=== PATIENT | male | born 1985 | race Caucasian/White ===

== ENCOUNTER 2024-05-29 12:23 | Inpatient (IN) | payer OTHER ==
[2024-05-29] MEDS ORDERED: VANCOMYCIN IV PER PHARMACY 1 EACH MISC MISCELLANE PRN (13:00)
--- NOTE | 2024-05-29 13:09 | ED ---
General Adult HPI - General Chief complaint: Chest Pain Stated complaint: chest pain Time Seen by Provider: 05/29/24 12:30 Source: patient, EMS, RN notes reviewed, old records reviewed Mode of arrival: EMS Limitations: no limitations - History of Present Illness Initial comments: 49-year-old male presenting from [place] for evaluation of right armpit cellulitis. Patient has had pain and swelling in the right armpit for the past several days. He is currently at [place] for alcohol abuse. He is been there for 2 days. He had also complained of some nonspecific chest tightness which has been also going on for 2 days since he has abstained from alcohol. No prior cardiac history. - Related Data Home Medications Medication Instructions Recorded Confirmed Methadone HCl [Methadone Intensol] 50 mg PO DAILY 05/29/24 05/29/24 Previous Rx's Medication Instructions Recorded Cephalexin [Keflex] 500 mg PO Q6HR 10 Days #40 cap 05/29/24 Sulfamethox-Tmp 800-160Mg [Bactrim 1 tab PO Q12HR #20 tab 05/29/24 DS 800-160 mg] Allergies Allergy/AdvReac Type Severity Reaction Status Date / Time Penicillins Allergy Unknown Verified 05/29/24 13:42 Childhood Review of Systems ROS Statement: Those systems with pertinent positive or pertinent negative responses have been documented in the HPI. ROS Other: All systems not noted in ROS Statement are negative. Past Medical History Past Medical History: Asthma, Hypertension Additional Past Medical History / Comment(s): alcohol withdrawl seizures Past Surgical History: Orthopedic Surgery, Tonsillectomy Additional Past Surgical History / Comment(s): R arm radius and ulna surgery r/t fx. wisdowm teeth removal Past Psychological History: Anxiety, Depression Smoking Status: Former smoker Past Alcohol Use History: Abuse, Daily Past Drug Use History: Opiates, Prescription Drug Abuse General Exam General appearance: alert, in no apparent distress Head exam: Present: atraumatic, normocephalic Eye exam: Present: normal appearance, PERRL ENT exam: Present: normal exam Neck exam: Present: normal inspection. Absent: tenderness, meningismus Respiratory exam: Present: normal lung sounds bilaterally. Absent: respiratory distress, wheezes Cardiovascular Exam: Present: regular rate, normal rhythm GI/Abdominal exam: Present: soft. Absent: distended, tenderness, guarding Extremities exam: Present: normal inspection, normal capillary refill Neurological exam: Present: alert, oriented X3, CN II-XII intact. Absent: motor sensory deficit Psychiatric exam: Present: normal affect, normal mood Skin exam: Present: other (Cellulitis in the right armpit stemming from a likely folliculitis minimal central fluctuance, no induration) Course Vital Signs 05/29/24 05/29/24 12:25 14:31 Temperature 99.1 F Pulse Rate 86 75 Respiratory 20 20 Rate Blood Pressure 135/87 118/75 O2 Sat by Pulse 95 98 Oximetry Procedures - Incision & Drainage Consent Obtained: verbal consent Indication: Colitis Site: upper extremity Size (cm): 1 Anesthetic Used: lidocaine 1% I&D Cleaning Method: Chloroprep, Alcohol Wipe Sterile Field Used?: No Ultrasound used: No Needle Aspiration Performed?: Yes Irrigation Performed?: Yes I&D Drainage Obtained: Pus Insertion of drain: No Culture Obtained?: No Patient Tolerated Procedure: well Medical Decision Making - Medical Decision Making Was pt. sent in by a medical professional or institution (Dr. PA, CONSTRUCTION SUPERINTENDENT, urgent care, hospital, or assisted...) When possible be specific @ -No Did you speak to anyone other than the patient for history (EMS, parent, family, police, friend...)? What history was obtained from this source @ -No Did you review nursing and triage notes (agree or disagree)? Why? @ -I reviewed and agree with nursing and triage notes Were old charts reviewed (outside hosp., previous admission, EMS record, old EKG, old radiological studies, urgent care reports/EKG's, assisted records)? Report findings @ -No old charts were reviewed Differential Diagnosis (chest pain, altered mental status, abdominal pain women, abdominal pain men, vaginal bleeding, weakness, fever, dyspnea, syncope, headache, dizziness, GI bleed, back pain, seizure, CVA, palpatations, mental health, musculoskeletal)? @ -Not applicable EKG interpreted by me (3pts min.). @Sinus rhythm rate of 83 AK interval 142, QRS duration 98, QTc 392 [id number] X-rays interpreted by me (1pt min.). @Chest x-ray negative for acute cardiopulmonary finding CT interpreted by me (1pt min.). @ -None done U/S interpreted by me (1pt. min.). @ -None done What testing was considered but not performed or refused? (CT, X-rays, U/S, labs)? Why? @ -None What meds were considered but not given or refused? Why? @ -None Did you discuss the management of the patient with other professionals (professionals i.e. , PA, CONSTRUCTION SUPERINTENDENT, lab, RT, psych nurse, delinquency prevention social worker, bull fiddle player, t eacher, drug abuse resistance education officer, hospice case manager)? Give summary @Sound physician group Was smoking cessation discussed for >3mins.? @ -No Was critical care preformed (if so, how long)? @ -No Were there social determinants of health that impacted care today? How? (Homelessness, low income, unemployed, alcoholism, drug addiction, transportation, low edu. Level, literacy, decrease access to med. care, retirement, re hab)? @ -No Was there de-escalation of care discussed even if they declined (Discuss DNR or withdrawal of care, Hospice)? DNR status @ -No What co-morbidities impacted this encounter? (DM, HTN, Smoking, COPD, CAD, Cancer, CVA, ARF, Chemo, Hep., AIDS, mental health diagnosis, sleep apnea, morbid obesity)? @ -ETOH abuse Was patient admitted / discharged? Hospital course, mention meds given and ro camilla, prescriptions, significant lab abnormalities, going to OR and other pertinent info. @ -39 yo male presenting for evaluation of pain and swelling in the right armpit and a vague chest discomfort while abstaining from alcohol. EKG is sinus rhythm rate of [address] segment elevation. Chest x-ray is clear. He has a normal CBC, normal CMP, negative D-dimer, negative troponin. I was able to aspirate the folliculitis in the right armpit and start the patient on antibiotics. Patient will be admitted for continuous IV antibiotics and alcohol withdrawal. Undiagnosed new problem with uncertain prognosis? @ -No Drug Therapy requiring intensive monitoring for toxicity (Heparin, Nitro, Ins ulin, Cardizem)? @ -No Were any procedures done? @ -Aspiration of large folliculitis Diagnosis/symptom? @ -Cellulitis folliculitis, alcohol withdrawal Acute, or Chronic, or Acute on Chronic? @Acute Uncomplicated (without systemic symptoms) or Complicated (systemic symptoms)? @ -Default Side effects of treatment? @ -No Exacerbation, Progression, or Severe Exacerbation? @ -No Poses a threat to life or bodily function? How? (Chest pain, [place], [place], pneumonia, PE, COPD, DKA, ARF, appy, cholecystitis, CVA, Diverticulitis, Homicidal, Suicidal, threat to staff... and all critical care pts) @Low risk at this time - Lab Data Result diagrams: 05/29/24 12:54 05/29/24 12:54 Lab Results 05/29/24 05/29/24 05/29/24 Range/Units 12:54 12:54 12:54 WBC 8.18 (4.50-10.00) 10*3/uL RBC 4.37 L (4.40-5.60) 10*6/uL Hgb 13.4 (13.0-17.0) g/dL Hct 39.1 L (39.6-50.0) % MCV 89.5 (80.0-97.0) fL MCH 30.7 (27.0-32.0) pg MCHC 34.3 (32.0-37.0) g/dL Plt Count 240 (140-440) 10*3/uL MPV 11.3 (9.5-12.2) fL Immature Gran % (Auto) 0.2 % Neutrophils % 78.7 % Lymphocytes % 10.5 % Monocytes % 9.9 % Eosinophils % 0.2 % Basophils % 0.5 % Immature Gran # 0.02 (0.00-0.04) 10*3/uL Neutrophils # 6.43 (1.80-7.70) 10*3/uL Lymphocytes # 0.86 L (0.90-5.00) 10*3/uL Monocytes # 0.81 (0.20-1.00) 10*3/uL Eosinophils # 0.02 L (0.04-0.35) 10*3/uL Basophils # 0.04 (0.00-0.10) 10*3/uL PT 12.0 (10.0-12.5) sec INR 1.1 (<1.2) APTT 26.4 (22.0-30.0) sec D-Dimer (<0.60) mg/L FEU Sodium 136 L (137-145) mmol/L Potassium 4.8 (3.5-5.1) mmol/L Chloride 106 (98-107) mmol/L Carbon Dioxide 21 L (22-30) mmol/L Anion Gap 9 mmol/L BUN 9 (9-20) mg/dL Creatinine 0.66 (0.66-1.25) mg/dL Est GFR (CKD-EPI)AfAm >90 (>60 ml/min/1.73 sqM) Est GFR (CKD-EPI)NonAf >90 (>60 ml/min/1.73 sqM) Glucose 101 H (74-99) mg/dL Plasma Lactic Acid Artemio (0.7-2.0) mmol/L Calcium 9.4 (8.4-10.2) mg/dL Magnesium 1.7 (1.6-2.3) mg/dL Total Bilirubin 0.7 (0.2-1.3) mg/dL AST 25 (17-59) U/L ALT 17 (4-49) U/L Alkaline Phosphatase 58 (38-126) U/L Troponin I (0.000-0.034) ng/mL Total Protein 6.6 (6.3-8.2) g/dL Albumin 4.1 (3.5-5.0) g/dL 05/29/24 05/29/24 05/29/24 Range/Units 12:54 12:54 14:03 WBC (4.50-10.00) 10*3/uL RBC (4.40-5.60) 10*6/uL Hgb (13.0-17.0) g/dL Hct (39.6-50.0) % MCV (80.0-97.0) fL MCH (27.0-32.0) pg MCHC (32.0-37.0) g/dL Plt Count (140-440) 10*3/uL MPV (9.5-12.2) fL Immature Gran % (Auto) % Neutrophils % % Lymphocytes % % Monocytes % % Eosinophils % % Basophils % % Immature Gran # (0.00-0.04) 10*3/uL Neutrophils # (1.80-7.70) 10*3/uL Lymphocytes # (0.90-5.00) 10*3/uL Monocytes # (0.20-1.00) 10*3/uL Eosinophils # (0.04-0.35) 10*3/uL Basophils # (0.00-0.10) 10*3/uL PT (10.0-12.5) sec INR (<1.2) APTT (22.0-30.0) sec D-Dimer 0.52 (<0.60) mg/L FEU Sodium (137-145) mmol/L Potassium (3.5-5.1) mmol/L Chloride (98-107) mmol/L Carbon Dioxide (22-30) mmol/L Anion Gap mmol/L BUN (9-20) mg/dL Creatinine (0.66-1.25) mg/dL Est GFR (CKD-EPI)AfAm (>60 ml/min/1.73 sqM) Est GFR (CKD-EPI)NonAf (>60 ml/min/1.73 sqM) Glucose (74-99) mg/dL Plasma Lactic Acid Artemio 1.1 (0.7-2.0) mmol/L Calcium (8.4-10.2) mg/dL Magnesium (1.6-2.3) mg/dL Total Bilirubin (0.2-1.3) mg/dL AST (17-59) U/L ALT (4-49) U/L Alkaline Phosphatase (38-126) U/L Troponin I <0.012 (0.000-0.034) ng/mL Total Protein (6.3-8.2) g/dL Albumin (3.5-5.0) g/dL Disposition Clinical Impression: Cellulitis, Alcohol withdrawal Disposition: ADMITTED IP TO THIS HOSP Condition: Stable Prescriptions: Sulfamethox-Tmp 800-160Mg [Bactrim DS 800-160 mg] 1 tab PO Q12HR #20 tab Cephalexin [Keflex] 500 mg PO Q6HR 10 Days #40 cap Is patient prescribed a controlled substance at d/c from ED?: No Referrals: None,Stated [Primary Care Provider] - 1-2 days Forms: [facility], [facility] Time of Disposition: 14:40
--- NOTE | 2024-05-29 13:11 | XR ---
EXAMINATION TYPE: XR chest 2V DATE OF EXAM: 05/29/2024 1:02 PM COMPARISON: None CLINICAL INDICATION: Male, 39 years old with history of Chest Pain; TECHNIQUE: XR chest 2V Frontal and lateral views of the chest. FINDINGS: Lungs/Pleura: There is no evidence of pleural effusion, focal consolidation, or pneumothorax. Pulmonary vascularity: Unremarkable. Heart/mediastinum: Cardiomediastinal silhouette is unremarkable. Musculoskeletal: No acute osseous pathology. IMPRESSION: No acute cardiopulmonary disease/process. [facility], , 05/29/2024 1:08 PM
[2024-05-29 13:13] LABS: INR 1.1 (<1.2); Partial Thromboplastin Time 26.4 sec (22.0-30.0)
[2024-05-29 13:14] LABS: Basophils # (A) 0.04 10*3/uL (0.00-0.10); Basophils % (A) 0.5 %; Eosinophils # (A) 0.02 10*3/uL (0.04-0.35); Eosinophils % (A) 0.2 %; HCT 39.1 % (39.6-50.0); HGB 13.4 g/dL (13.0-17.0); Lymphocytes # (A) 0.86 10*3/uL (0.90-5.00); Lymphocytes % (A) 10.5 %; MCH 30.7 pg (27.0-32.0); MCHC 34.3 g/dL (32.0-37.0); MCV 89.5 fL (80.0-97.0); Mean Platelet Volume 11.3 fL (9.5-12.2); Monocytes # (A) 0.81 10*3/uL (0.20-1.00); Monocytes % (A) 9.9 %; Neutrophils # (A) 6.43 10*3/uL (1.80-7.70); Neutrophils % (A) 78.7 %; Platelet Count 240 10*3/uL (140-440); RBC 4.37 10*6/uL (4.40-5.60); RDW 12.1 % (11.5-14.5); WBC 8.18 10*3/uL (4.50-10.00)
[2024-05-29] MEDS: LIDOCAINE 1% INJ 10MG/ML (20 ML MDV) SQ ONE (13:17)
[2024-05-29 13:20] LABS: ALT 17 U/L (4-49); AST 25 U/L (17-59); African American GFR (CKD) >90 (>60 ml/min/1.73 sqM); Albumin 4.1 g/dL (3.5-5.0); Alkaline Phosphatase 58 U/L (38-126); Anion Gap 9 mmol/L; Blood Urea Nitrogen 9 mg/dL (9-20); Calcium 9.4 mg/dL (8.4-10.2); Carbon Dioxide 21 mmol/L (22-30); Chloride 106 mmol/L (98-107); Glucose 101 mg/dL (74-99); Magnesium 1.7 mg/dL (1.6-2.3); Non-African American GFR(CKD) >90 (>60 ml/min/1.73 sqM); Potassium 4.8 mmol/L (3.5-5.1); Sodium 136 mmol/L (137-145); Total Bilirubin 0.7 mg/dL (0.2-1.3); Total Protein 6.6 g/dL (6.3-8.2)
[2024-05-29] MEDS: ONDANSETRON 4 MG/2 ML VIAL IVP STA (14:04)
[2024-05-29] MEDS: SODIUM CHLORIDE 0.9% 1,000 ML IV ONE (14:04)
[2024-05-29] MEDS: KETOROLAC 15 MG/ML 1 ML VIAL IVP STA (14:04)
[2024-05-29] MEDS: VANCOMYCIN 1,750 MG in SODIUM CHLORIDE 0.9% 500 ML 500 ML IVPB STA (14:05)
[2024-05-29] MEDS: LORazepam 2 MG/ML INJ IV STA (15:47)
[2024-05-29] MEDS ORDERED: LORazepam 2 MG/ML INJ IV PRN ×2 (16:39)
[2024-05-29] MEDS ORDERED: NALOXONE 0.4 MG/ML 1 ML VIAL IV PRN (16:40)
[2024-05-29] MEDS: THIAMINE 100 MG/ML 2 ML VIAL IM STA (17:01)
[2024-05-29] MEDS: SODIUM CHLORIDE 0.9% 1,000 ML IV SCH (17:02)
[2024-05-29] MEDS: LORazepam 2 MG/ML INJ IV PRN (17:10)
--- NOTE | 2024-05-29 18:08 | P.HPIM ---
History of Present Illness H&P Date: 05/29/24 Chief Complaint: cellulitis Patient is a 39-year-old male with history of asthma, hypertension, chronic alcohol abuse presenting for evaluation of right axillary cellulitis and chest pain. Patient is a transfer from [place] for alcohol abuse. Patient says he was working out doing push-ups and having having a lot of friction at the site. He noticed his right axilla started to become red started to swell up and grow painful over the past week. Since abstaining from alcohol patient endorses chest tightness that 2 days ago and describes it as a constant nonradiating tightness with no alleviating or exacerbating factors. Patient states he normally gets chest tightness due to his anxiety from quitting alcohol consumption. Patient denies any cardiac history. Patient admits to chills. Denies any fever, shortness of breath, nausea, vomiting, diarrhea, constipa tion, urinary symptoms. EKG independently interpreted displaying sinus rhythm, poor R wave progression, rate 83 bpm, QTc 392 CXR independently interpreted displaying no acute cardiopulmonary process WBC 8.18, Hgb 13.4, platelet 240, INR 1.1, sodium 136, CO2 21, BUN 9, creatinine 0.66, magnesium 1.7, lactic acid 1.1 T99.1 F, [place] 86, RR 20, BP 135/87, O2 saturation 95% on room air ED documentation reviewed. Review of systems: Pertinent positives and negatives as discussed in HPI, a complete review of systems was performed and all other systems are negative. Social history: Tobacco: Former 3 pack year smoker Alcohol: History of daily alcohol abuse, drinks 2 fifths of vodka a day, last drink 2 days ago Recreational drugs: History of opiate use Physical examination: Vital signs reviewed General: non toxic, no distress, appears at stated age, normal weight Derm: Erythematous, warm, tender to palpation, well-demarcated and indurated right axilla cellulitis with no drainage Head: atraumatic, normocephalic, symmetric Eyes: EOMI, anicteric sclera, pupils equal round reactive to light ENT: Nose and ears atraumatic Neck: No cervical lymphadenopathy, trachea midline, supple Mouth: no lip lesion, mucus membranes moist Cardiovascular: S1S2 reg, no murmur, positive dorsalis pedis pulse bilateral, no edema Lungs: CTA bilateral, no rhonchi, no rales, no accessory muscle use Abdominal: soft, non-tender to palpation, no guarding Ext: muscle strength 5 out of 5 in all 4 extremities grossly, no gross muscle atrophy Neuro: CN II-XI grossly intact, no gross focal neuro deficits Psych: Alert, oriented to person, place, and time Assessment/Plan: Patient is a 39-year-old male with history of asthma, hypertension, chronic alcohol abuse being admitted for right axillary cellulitis. #. Right axillary cellulitis SIRS 0, WBC with normal limit, patient afebrile, lactic acid within normal limit at 1.1 Continue with IV vancomycin IVPB every 8 hours, monitor renal function Blood cultures ordered #. Alcohol withdrawal Ativan per [facility] protocol Monitor for seizure Zofran 4 mg IVP every 8 hours as needed Thiamine 100 mg p.o. daily Normal saline at 75 cc an hour #. Acute chest pain, likely noncardiac Likely secondary to alcohol withdrawal/anxiety, patient says he normally gets chest tightness when he stops drinking alcohol EKG independently interpreted displaying sinus rhythm, rate 83 bpm, QTc 392 CXR independent interpreted displaying no acute cardiopulmonary process Troponin <0.012 #. History of asthma Albuterol inhaler 2.5 mg inhalation 4 times daily as needed Discharge him with albuterol inhaler per patient request #. History of opioid use Methadone 50 mg p.o. daily #. Hypertension Patient states he was prescribed clonidine for his hypertension Plan to switch patient to better antihypertensive upon discharge DVT prophylaxis: Lovenox 40 SQ daily The patient is admitted with an anticipated less than than 2 midnight stay for evaluation of right axillary cellulitis. CODE STATUS: Full code Discussed with: Patient Anticipated discharge place: [place] Anne Singh MD PGY-1 IM Dictation was produced using [employer] dictation software. please excuse any gr ammatical, word or spelling errors. Past Medical History Past Medical History: Asthma, Hypertension Additional Past Medical History / Comment(s): alcohol withdrawl seizures Past Surgical History: Orthopedic Surgery, Tonsillectomy Additional Past Surgical History / Comment(s): R arm radius and ulna surgery r/t fx. wisdowm teeth removal Past Psychological History: Anxiety, Depression Smoking Status: Former smoker Past Alcohol Use History: Abuse, Daily Past Drug Use History: Opiates, Prescription Drug Abuse Medications and Allergies Home Medications Medication Instructions Recorded Confirmed Type Cephalexin [Keflex] 500 mg PO Q6HR 10 Days #40 cap 05/29/24 Rx Methadone HCl [Methadone Intensol] 50 mg PO DAILY 05/29/24 05/29/24 History Sulfamethox-Tmp 800-160Mg [Bactrim 1 tab PO Q12HR #20 tab 05/29/24 Rx DS 800-160 mg] Allergies Allergy/AdvReac Type Severity Reaction Status Date / Time Penicillins Allergy Unknown Verified 05/29/24 13:42 Childhood Physical Exam Vitals: Vital Signs Temp Pulse Resp BP Pulse Ox 05/29/24 14:31 75 20 118/75 98 05/29/24 12:25 99.1 F 86 20 135/87 95 Intake and Output 05/29/24 05/29/24 05/29/24 06:59 14:59 22:59 Other: Weight 104.326 kg Results CBC & Chem 7: 05/29/24 12:54 05/29/24 12:54 Labs: Abnormal Lab Results - Last 24 Hours (Table) 05/29/24 05/29/24 Range/Units 12:54 12:54 RBC 4.37 L (4.40-5.60) 10*6/uL Hct 39.1 L (39.6-50.0) % Lymphocytes # 0.86 L (0.90-5.00) 10*3/uL Eosinophils # 0.02 L (0.04-0.35) 10*3/uL Sodium 136 L (137-145) mmol/L Carbon Dioxide 21 L (22-30) mmol/L Glucose 101 H (74-99) mg/dL
[2024-05-29] MEDS: METHADONE 10 MG TAB PO SCH (19:06)
[2024-05-29] MEDS: ENOXAPARIN 40 MG/0.4 ML SYRINGE SQ SCH (19:10)
[2024-05-29] MEDS: ONDANSETRON 4 MG/2 ML VIAL IVP PRN (20:17)
[2024-05-29] MEDS: LORazepam 1 MG/0.5 ML VIAL IV PRN (22:23)
[2024-05-29] MEDS: VANCOMYCIN 1,750 MG in SODIUM CHLORIDE 0.9% 500 ML 500 ML IVPB SCH (23:36)
[2024-05-29] MEDS: ACETAMINOPHEN TAB 325 MG TAB PO PRN (23:43)
[2024-05-30] MEDS: LORazepam 1 MG/0.5 ML VIAL IV PRN ×2 (04:57→08:17)
[2024-05-30 06:01] LABS: Basophils # (A) 0.03 10*3/uL (0.00-0.10); Basophils % (A) 0.4 %; Eosinophils # (A) 0.03 10*3/uL (0.04-0.35); Eosinophils % (A) 0.4 %; HCT 35.8 % (39.6-50.0); HGB 11.7 g/dL (13.0-17.0); Lymphocytes # (A) 1.22 10*3/uL (0.90-5.00); Lymphocytes % (A) 16.1 %; MCH 30.2 pg (27.0-32.0); MCHC 32.7 g/dL (32.0-37.0); MCV 92.3 fL (80.0-97.0); Mean Platelet Volume 10.7 fL (9.5-12.2); Monocytes % (A) 13.2 %; Neutrophils # (A) 5.25 10*3/uL (1.80-7.70); Neutrophils % (A) 69.5 %; Platelet Count 219 10*3/uL (140-440); RBC 3.88 10*6/uL (4.40-5.60); RDW 12.2 % (11.5-14.5); WBC 7.56 10*3/uL (4.50-10.00)
[2024-05-30 06:21] LABS: African American GFR (CKD) >90 (>60 ml/min/1.73 sqM); Anion Gap 9 mmol/L; Blood Urea Nitrogen 14 mg/dL (9-20); Calcium 8.9 mg/dL (8.4-10.2); Carbon Dioxide 23 mmol/L (22-30); Chloride 101 mmol/L (98-107); Glucose 82 mg/dL (74-99); Magnesium 1.7 mg/dL (1.6-2.3); Non-African American GFR(CKD) >90 (>60 ml/min/1.73 sqM); Potassium 4.3 mmol/L (3.5-5.1); Sodium 133 mmol/L (137-145)
[2024-05-30] MEDS: THIAMINE 100 MG TAB PO SCH (08:16)
[2024-05-30] MEDS: ALBUTEROL NEBULIZED 2.5 MG/3 ML INHALATION PRN (09:26)
--- NOTE | 2024-05-30 11:07 | P.PN ---
Subjective Progress Note Date: 05/30/24 Hospital Course: Patient is a 39-year-old male with history of asthma, hypertension, chronic alcohol abuse presenting for evaluation of right axillary cellulitis and chest pain. Patient is a transfer from [place] for alcohol abuse. Patient says he was working out doing push-ups and having having a lot of friction at the site. He noticed his right axilla started to become red started to swell up and grow painful over the past week. Since abstaining from alcohol patient endorses chest tightness that 2 days ago and describes it as a constant nonradiating tightness with no alleviating or exacerbating factors. Patient states he normally gets chest tightness due to his anxiety from quitting alcohol consumption. Patient denies any cardiac history. Patient admits to chills. Denies any fever, shortness of breath, nausea, vomiting, diarrhea, constipation, urinary symptoms. EKG independently interpreted displaying sinus rhythm, poor R wave progression, rate 83 bpm, QTc 392 CXR independently interpreted displaying no acute cardiopulmonary process WBC 8.18, Hgb 13.4, platelet 240, INR 1.1, sodium 136, CO2 21, BUN 9, creatinine 0.66, magnesium 1.7, lactic acid 1.1 T99.1 F, [place] 86, RR 20, BP 135/87, O2 saturation 95% on room air Subjective: Patient spiked low-grade fever last night. He states that he had a couple episodes of nonbloody vomiting. This morning he says he feels a little bit better. Says he noticed some drainage from wound site with significant pain. Pertinent positives and negatives as discussed above, a complete review of systems was performed and all other systems are negative. Vitals: Signs Reviewed Physical Exam: General: nontoxic, no distress, appears at stated age Derm: Erythematous, warm, tender to palpation, well-demarcated and indurated right axilla cellulitis with purulent drainage Head: atraumatic, normocephalic, symmetric Eyes: EOMI, anicteric sclera Mouth: no lip lesion, mucus membranes moist Cardiovascular: S1 S2 reg, no murmur, rubs, or gallops Lungs: CTA bilateral, no rhonchi, no rales, no accessory muscle use Abdominal: soft, non-tender to palpataion, no appreciable organomegaly Extremities: no gross muscle atrophy, no edema, no contractures Neuro: Alert, Oriented, CNII-XII grossly intact, gait normal Psych: well appearing, appropriate affect Data Received Today: Pertinent Labs: WBC 7.56, Hgb 11.7, MCV 92.8, platelet 219, sodium 133, BUN 14, creatinine 0.93, magnesium 1.7 Imaging: N/A Assessment and Plan: Patient is a 39-year-old male with history of asthma, hypertension, chronic alcohol abuse being admitted for right axillary cellulitis. #. Purulent skin and soft tissue infection #. Right axillary cellulitis Patient with low-grade fever 100.2 F last night which has since resolved IV vancomycin switched to Bactrim Ds 800-160 mg PO BID (day 1), plan for 5-day course Blood cultures pending Acetaminophen 650 mg p.o. every 6 hours as needed for fever control #. 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 daily Normal saline at 75 cc an hour #. Acute chest pain, likely non-cardiac Likely secondary to alcohol withdrawal/anxiety, patient says he normally gets chest tightness when he stops drinking alcohol EKG independently interpreted displaying sinus rhythm, rate 83 bpm, QTc 392 CXR independent interpreted displaying no acute cardiopulmonary process Troponin <0.012 #. History of asthma Albuterol inhaler 2.5 mg inhalation 4 times daily as needed Discharge him with albuterol inhaler per patient request #. History of opioid use Methadone 50 mg p.o. daily #. Hypertension Patient states he was prescribed clonidine for his hypertension Plan to switch patient to better antihypertensive upon discharge DVT prophylaxis: Lovenox 40 SQ daily Code status: FULL CODE Anticipated discharge place: Pending clinical course Anticipated discharge time: Pending clinical course Anne Singh MD PGY-1 IM Dictation was produced using [employer] dictation software. please excuse any grammatical, word or spelling errors. Patient switched over to inpatient due to severe alcohol withdrawal and requiring frequent Ativan IV I have seen and evaluated the patient today. Discussed with the resident and agree with the residents finding and plan as documented in the resident's note. Changes highlighted in blue font. Objective - Vital Signs Vital signs: Vital Signs Temp 98.9 F 04/23/25 07:30 Pulse 75 05/30/24 09:29 Resp 18 05/30/24 07:30 BP 108/71 05/30/24 07:30 Pulse Ox 98 05/30/24 09:29 FiO2 Intake & Output 05/29/24 05/30/24 05/30/24 18:59 06:59 18:59 Intake Total 540 118 Balance 540 118 Weight 104.326 kg Intake: Oral 540 118 Other: Voiding Method Toilet # Voids 3 - Labs CBC & Chem 7: 05/30/24 05:26 05/30/24 05:26 Labs: Abnormal Lab Results - Last 24 Hours (Table) 05/29/24 05/29/24 05/30/24 Range/Units 12:54 12:54 05:26 RBC 4.37 L 3.88 L (4.40-5.60) 10*6/uL Hgb 11.7 L (13.0-17.0) g/dL Hct 39.1 L 35.8 L (39.6-50.0) % Lymphocytes # 0.86 L (0.90-5.00) 10*3/uL Eosinophils # 0.02 L 0.03 L (0.04-0.35) 10*3/uL Sodium 136 L (137-145) mmol/L Carbon Dioxide 21 L (22-30) mmol/L Glucose 101 H (74-99) mg/dL 05/30/24 Range/Units 05:26 RBC (4.40-5.60) 10*6/uL Hgb (13.0-17.0) g/dL Hct (39.6-50.0) % Lymphocytes # (0.90-5.00) 10*3/uL Eosinophils # (0.04-0.35) 10*3/uL Sodium 133 L (137-145) mmol/L Carbon Dioxide (22-30) mmol/L Glucose (74-99) mg/dL
[2024-05-30] MEDS: SULFAMETHOX-TMP 800-160MG 1 EACH TAB PO SCH (11:29)
[2024-05-31 05:15] LABS: Basophils # (A) 0.04 10*3/uL (0.00-0.10); Basophils % (A) 0.8 %; Eosinophils # (A) 0.07 10*3/uL (0.04-0.35); Eosinophils % (A) 1.4 %; HCT 34.8 % (39.6-50.0); HGB 11.2 g/dL (13.0-17.0); Lymphocytes # (A) 1.35 10*3/uL (0.90-5.00); Lymphocytes % (A) 27.3 %; MCH 29.7 pg (27.0-32.0); MCHC 32.2 g/dL (32.0-37.0); MCV 92.3 fL (80.0-97.0); Mean Platelet Volume 11.6 fL (9.5-12.2); Monocytes # (A) 0.79 10*3/uL (0.20-1.00); Neutrophils # (A) 2.69 10*3/uL (1.80-7.70); Neutrophils % (A) 54.3 %; Platelet Count 207 10*3/uL (140-440); RBC 3.77 10*6/uL (4.40-5.60); RDW 12.4 % (11.5-14.5); WBC 4.95 10*3/uL (4.50-10.00)
[2024-05-31 05:34] LABS: African American GFR (CKD) >90 (>60 ml/min/1.73 sqM); Anion Gap 10 mmol/L; Blood Urea Nitrogen 15 mg/dL (9-20); Calcium 9.1 mg/dL (8.4-10.2); Carbon Dioxide 23 mmol/L (22-30); Chloride 105 mmol/L (98-107); Glucose 92 mg/dL (74-99); Non-African American GFR(CKD) >90 (>60 ml/min/1.73 sqM); Potassium 4.4 mmol/L (3.5-5.1); Sodium 138 mmol/L (137-145)
[2024-05-31] MEDS: CALCIUM CARBONATE 500 MG CHEWABLE PO PRN (08:43)
[2024-05-31] MEDS: LORazepam 1 MG TAB PO PRN ×2 (09:55→14:33)
[2024-05-31] MEDS ORDERED: VANCOMYCIN IV PER PHARMACY 1 EACH MISC MISCELLANE PRN (11:13)
--- NOTE | 2024-05-31 13:28 | CT ---
CT right upper extremity. HISTORY: Pain and redness in the right upper extremity. COMPARISON: None TECHNIQUE: Multiple axial images are obtained through the upper shoulder 2 mid forearm with contrast. FINDINGS: There is regional areas of abnormal density in the subcutaneous soft tissues of the medial upper extr emity consistent with inflammation. The overlying dermis is mildly thickened. There is no discrete fl uid collection or abscess. The soft tissue density posterior to the elbow also consistent with inflam mation. No discrete fluid collection or abscess. The underlying osseous structures are intact. No cortical reaction. IMPRESSION: 1. Findings consistent with cellulitis in subcutaneous edema without discrete mass, fluid collection or abscess. 2. No evidence of osteomyelitis. [facility], , 05/31/2024 1:25 PM
[2024-05-31] MEDS: VANCOMYCIN 1,750 MG in SODIUM CHLORIDE 0.9% 500 ML 500 ML IVPB SCH (14:09)
[2024-05-31] MEDS: HYDROmorphone 2 MG/ML 1 ML SYRINGE IVP PRN (14:33)
--- NOTE | 2024-05-31 15:14 | P.PN ---
Subjective Progress Note Date: 05/31/24 Hospital Course: Patient is a 39-year-old male with history of asthma, hypertension, chronic alcohol abuse presenting for evaluation of right axillary cellulitis and chest pain. Patient is a transfer from [place] for alcohol abuse. Patient says he was working out doing push-ups and having having a lot of friction at the site. He noticed his right axilla started to become red started to swell up and grow painful over the past week. Since abstaining from alcohol patient endorses chest tightness that 2 days ago and describes it as a constant nonradiating tightness with no alleviating or exacerbating factors. Patient states he normally gets chest tightness due to his anxiety from quitting alcohol consumption. Patient denies any cardiac history. Patient admits to chills. Denies any fever, shortness of breath, nausea, vomiting, diarrhea, constipation, urinary symptoms. EKG independently interpreted displaying sinus rhythm, poor R wave progression, rate 83 bpm, QTc 392 CXR independently interpreted displaying no acute cardiopulmonary process WBC 8.18, Hgb 13.4, platelet 240, INR 1.1, sodium 136, CO2 21, BUN 9, creatinine 0.66, magnesium 1.7, lactic acid 1.1 T99.1 F, MA 86, RR 20, BP 135/87, O2 saturation 95% on room air Subjective: No acute events overnight. Patient states pain has gotten worse. Pertinent positives and negatives as discussed above, a complete review of systems was performed and all other systems are negative. Vitals: Signs Reviewed Physical Exam: General: nontoxic, no distress, appears at stated age Derm: Erythematous, warm, tender to palpation, well-demarcated and indurated right axilla cellulitis, has expanded from yesterday Head: atraumatic, normocephalic, symmetric Eyes: EOMI, anicteric sclera Mouth: no lip lesion, mucus membranes moist Cardiovascular: S1 S2 reg, no murmur, rubs, or gallops Lungs: CTA bilateral, no rhonchi, no rales, no accessory muscle use Abdominal: soft, non-tender to palpataion, no appreciable organomegaly Extremities: no gross muscle atrophy, no edema, no contractures Neuro: Alert, Oriented, CNII-XII grossly intact, gait normal Psych: well appearing, appropriate affect Data Received Today: Pertinent Labs: WBC 4.95, Hgb 11.2, MCV 92.3, sodium 138, bicarb 23, BUN 15, creatinine 0.94 Imaging: Right upper extremity CT consistent with cellulitis and subcutaneous edema without discrete mass, fluid collection or abscess, no evidence of osteomyelitis Assessment and Plan: Patient is a 39-year-old male with history of asthma, hypertension, chronic alcohol abuse being admitted for right axillary cellulitis. #. Purulent skin and soft tissue infection #. Right axillary cellulitis Patient with low-grade fever 100.2 F last night which has since resolved Patient placed back on IV vancomycin due to concerns of worsening cellulitis, Bactrim discontinued Blood cultures showing no growth after 24 hours Acetaminophen 650 mg p.o. every 6 hours as needed for fever control Dilaudid 1 mg IVP every 4 hours as needed for breakthrough pain Right upper extremity CT consistent with cellulitis and subcutaneous edema without discrete mass, fluid collection or abscess, no evidence of osteomyelitis #. Alcohol withdrawal 4 days since last alcoholic consumption Ativan per [facility] protocol, was given 4 mg IV last night since midnight Switching IV Ativan to PO Ativan per [facility] protocol, patient has not been tachycardic or hypertensive, will continue to monitor symptoms Monitor for seizure Zofran 4 mg IVP every 8 hours as needed Thiamine 100 mg p.o. daily Normal saline at 75 cc an hour #. Acute chest pain, likely non-cardiac Likely secondary to alcohol withdrawal/anxiety, patient says he normally gets chest tightness when he stops drinking alcohol EKG independently interpreted displaying sinus rhythm, rate 83 bpm, QTc 392 CXR independent interpreted displaying no acute cardiopulmonary process Troponin < 0.012 #. History of asthma Albuterol inhaler 2.5 mg inhalation 4 times daily as needed Discharge him with albuterol inhaler per patient request #. History of opioid use Methadone 50 mg p.o. daily #. Hypertension Patient states he was prescribed clonidine for his hypertension Plan to switch patient to better antihypertensive upon discharge DVT prophylaxis: Lovenox 40 SQ daily Code status: FULL CODE Anticipated discharge place: Pending clinical course Anticipated discharge time: Pending clinical course Anne Singh MD PGY-1 IM Dictation was produced using [employer] dictation software. please excuse any grammatical, word or spelling errors. I have seen and evaluated the patient today. Discussed with the resident and agree with the residents finding and plan as documented in the resident's note. Changes highlighted in blue font. Objective - Vital Signs Vital signs: Vital Signs Temp 97.6 F 05/31/24 07:00 Pulse 80 05/31/24 07:49 Resp 17 05/31/24 07:00 BP 114/71 05/31/24 07:00 Pulse Ox 96 05/31/24 07:38 FiO2 Intake & Output 05/30/24 05/31/24 05/31/24 18:59 06:59 18:59 Intake Total 298 Balance 298 Intake: Oral 298 Other: Voiding Method Toilet Toilet # Voids 4 2 # Bowel Movements 0 - Labs CBC & Chem 7: 05/31/24 04:26 05/31/24 04:26 Labs: Abnormal Lab Results - Last 24 Hours (Table) 05/31/24 Range/Units 04:26 RBC 3.77 L (4.40-5.60) 10*6/uL Hgb 11.2 L (13.0-17.0) g/dL Hct 34.8 L (39.6-50.0) % Microbiology - Last 24 Hours (Table) 05/29/24 14:03 Blood Culture - Preliminary Blood
[2024-06-01 05:13] LABS: Basophils # (A) 0.04 10*3/uL (0.00-0.10); Eosinophils # (A) 0.14 10*3/uL (0.04-0.35); Eosinophils % (A) 3.5 %; HCT 35.6 % (39.6-50.0); HGB 11.7 g/dL (13.0-17.0); Lymphocytes # (A) 1.08 10*3/uL (0.90-5.00); Lymphocytes % (A) 26.9 %; MCH 30.3 pg (27.0-32.0); MCHC 32.9 g/dL (32.0-37.0); MCV 92.2 fL (80.0-97.0); Mean Platelet Volume 11.2 fL (9.5-12.2); Monocytes # (A) 0.51 10*3/uL (0.20-1.00); Monocytes % (A) 12.7 %; Neutrophils # (A) 2.24 10*3/uL (1.80-7.70); Neutrophils % (A) 55.7 %; Platelet Count 266 10*3/uL (140-440); RBC 3.86 10*6/uL (4.40-5.60); RDW 12.2 % (11.5-14.5); WBC 4.02 10*3/uL (4.50-10.00)
[2024-06-01 05:26] LABS: African American GFR (CKD) >90 (>60 ml/min/1.73 sqM); Non-African American GFR(CKD) >90 (>60 ml/min/1.73 sqM)
[2024-06-01 05:27] LABS: ALT 15 U/L (4-49); AST 20 U/L (17-59); African American GFR (CKD) >90 (>60 ml/min/1.73 sqM); Albumin 3.6 g/dL (3.5-5.0); Albumin/Globulin Ratio 1.6; Alkaline Phosphatase 70 U/L (38-126); Anion Gap 10 mmol/L; Blood Urea Nitrogen 18 mg/dL (9-20); Calcium 9.3 mg/dL (8.4-10.2); Carbon Dioxide 23 mmol/L (22-30); Chloride 105 mmol/L (98-107); Globulin 2.3 g/dL; Glucose 97 mg/dL (74-99); Magnesium 1.7 mg/dL (1.6-2.3); Non-African American GFR(CKD) >90 (>60 ml/min/1.73 sqM); Potassium 4.7 mmol/L (3.5-5.1); Sodium 138 mmol/L (137-145); Total Bilirubin 0.3 mg/dL (0.2-1.3); Total Protein 5.9 g/dL (6.3-8.2)
[2024-06-01 07:40] VITALS: BP 116/76; TEMP 97.4
[2024-06-01 08:30] VITALS: RESP 15
[2024-06-01 12:06] VITALS: PULSE 84
--- NOTE | 2024-06-01 12:07 | P.DS ---
Providers Date of admission: 05/29/24 16:42 Discharge Diagnosis: Purulent skin and soft tissue infection Right axillary cellulitis Alcohol withdrawal Acute chest pain, non-cardiac History of asthma History opioid use Hypertension Hospital Course: Patient is a 39-year-old male with history of asthma, hypertension, chronic alcohol abuse presenting for evaluation of right axillary cellulitis and chest pain. Patient is a transfer from [place] for alcohol abuse. Patient says he was working out doing push-ups and having having a lot of friction at the site. He noticed his right axilla started to become red started to swell up and grow painful over the past week. Since abstaining from alcohol patient endorses chest tightness that 2 days ago and describes it as a constant nonradiating tightness with no alleviating or exacerbating factors. Patient states he normally gets chest tightness due to his anxiety from quitting alcohol consumption. Patient denies any cardiac history. Patient admits to chills. Denies any fever, shortness of breath, nausea, vomiting, diarrhea, consti pation, urinary symptoms. EKG independently interpreted displaying sinus rhythm, poor R wave progression, rate 83 bpm, QTc 392 CXR independently interpreted displaying no acute cardiopulmonary process WBC 8.18, Hgb 13.4, platelet 240, INR 1.1, sodium 136, CO2 21, BUN 9, creatinine 0.66, magnesium 1.7, lactic acid 1.1 T 99.1 F, VA 86, RR 20, BP 135/87, O2 saturation 95% on room air Patient is admitted for further management with purulent skin and soft tissue infection. Patient was placed on IV vancomycin for cellulitis. Ativan per [facility] protocol for alcohol withdrawal. Right upper extremity CT consistent with cellulitis and subcutaneous edema without discrete mass, fluid collection or abscess, no evidence of osteomyelitis. Cellulitis has been improving with the antibiotics. Patient is showing no signs of fever or any signs of worsening infection. Patient has been nontachycardic, not hypertensive, currently currently displaying no signs of any withdrawal symptoms. He will be discharged with 3 days worth of Ativan for anxiety, and he is to complete his 7-day course of antibiotics. The follow-up with the PCP. He can be discharged home today. Patient seen and examined at bedside. Vital signs reviewed and stable. Physical examination: Vital signs reviewed General: non-toxic, no distress, appears at stated age Derm: Erythematous, warm, tender to palpation, well-demarcated and indurated right axilla cellulitis, redness has decreased since yesterday Head: atraumatic, normocephalic, symmetric Eyes: EOMI, anicteric sclera Mouth: no lip lesion, mucus membranes moist Cardiovascular: S1 S2 reg, no murmur, rubs, or gallops Lungs: CTA bilateral, no rhonchi, no rales, no accessory muscle use Abdominal: soft, non-tender to palpataion, no appreciable organomegaly Extremities: no gross muscle atrophy, no edema, no contractures Neuro: Alert, Oriented, CNII-XII grossly intact, gait normal Psych: well appearing, appropriate affect A total of greater than 30 minutes of time were spent preparing this complex discharge summary. Patient was discharge on June 01, 2024 at 11:12 AM. Anne Singh MD PGY-1 IM Dictation was produced using [employer] dictation software. please excuse any grammatical, word or spelling errors. I have seen and evaluated the patient today. Discussed with the resident about finding and plan as documented in the resident's note. I do not agree with prescribing of ativan for anxiety. Attempts were made to educate the patient about possible adverse effect of mixing ativan, and alcohol. 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 Changes highlighted in blue font. Expected date of discharge: 06/01/24 Attending physician: Josse Youssef Primary care physician: Stated None Patient Condition at Discharge: Stable Plan - Discharge Summary Discharge Rx Participant: No New Discharge Prescriptions: New Sulfamethox-Tmp 800-160Mg [Bactrim DS 800-160 mg] 1 tab PO Q12HR #14 tab LORazepam [Ativan] 2 mg PO HS 3 Days #3 tab Discharge Medication List LORazepam [Ativan] 2 mg PO HS 3 Days #3 tab 06/01/24 [Rx] Sulfamethox-Tmp 800-160Mg [Bactrim DS 800-160 mg] 1 tab PO Q12HR #14 tab 06/01/24 [Rx] Follow up Appointment(s)/Referral(s): [facility] [NON-STAFF] - 1 Week None,Stated [Primary Care Provider] - 1-2 days Patient Instructions/Handouts: Cellulitis (GEN), Alcohol Intoxication (DC) Activity/Diet/Wound Care/Special Instructions: Follow up with PCP. Discharge/Stand Alone Forms: AA Meetings [facility] includes the [facility], [facility] Shel[facility], Who Do I Call?, Community Resources, Outpatient Counseling, Inp Substance Abuse Facilities, Area PCPs Discharge Disposition: HOME SELF-CARE
[2024-06-01] MEDS ORDERED: VANCOMYCIN TROUGH DUE 1 EACH MISC MISCELLANE ONE (19:00)
== END 2024-06-01 13:36 | disposition home or self-care (01) | DRG 383 ==
LOC: EC 12:23 → 6NMEDSUR 16:41 → OBSVTOIN 16:42 → 6NMEDSUR 17:29
PROVIDERS: ADMIT Student in an Organized Health Care Education/Training Program; ATTEND Student in an Organized Health Care Education/Training Program
DX: L03.111 Cellulitis of right axilla (principal); R07.89 Other chest pain; F06.4 Anxiety disorder due to known physiological condition; F10.139 Alcohol abuse with withdrawal, unspecified; F32.A Depression, unspecified; I10 Essential (primary) hypertension; J45.909 Unspecified asthma, uncomplicated; Z87.891 Personal history of nicotine dependence
CPT/HCPCS: 36415; 71046; 80048; 80053; 82565; 83605; 83735; 84484; 85025; 85379; 85610; 85730; 87040; 93005; 94640; 96361; 96365; 96366; 96372; 96375; 96376; 99285